=== PATIENT | female | born 1985 | race Caucasian/White ===

== ENCOUNTER → 2017-06-27 | Outpatient (CLI) | payer OTHER ==
[2017-06-27 13:48] LABS: BASO # 0.1 10^3/uL (0.0-0.2); BASO % 0.7 % (0.0-1.0); EOS # 0.1 10^3/uL (0.0-0.50); EOS % 0.9 % (0.0-3.0); HEMATOCRIT 39.5 % (36.0-47.0); HEMOGLOBIN 13.3 g/dl (12.0-15.5); IMMATURE GRANULOCYTE % 0.6 % (0-3.0); LYMPH # 1.6 10^3/uL (1.5-4.5); LYMPH % 19.8 % (24.0-44.0); MEAN CORPUSCULAR HEMOGLOBIN 29.4 pg (27.0-33.0); MEAN CORPUSCULAR HGB CONC 33.7 g/dl (32.0-36.5); MEAN CORPUSCULAR VOLUME 87.4 fl (80.0-96.0); MONO # 0.5 10^3/uL (0.0-0.8); MONO % 5.5 % (0.0-5.0); NEUTROPHILS % 72.5 % (36.0-66.0); PLATELET COUNT, AUTOMATED 300 10^3/uL (150-450); RED BLOOD COUNT 4.52 10^6/uL (4.00-5.40); RED CELL DISTRIBUTION WIDTH 12.5 % (11.5-14.5); WHITE BLOOD COUNT 8.2 10^3/uL (4.0-10.0)
[2017-06-27 15:28] LABS: CHLAMYDIA DNA AMPLIFICATION NEGATIVE (NEGATIVE); GC DNA AMPLIFICATION NEGATIVE (NEGATIVE)
[2017-06-28 12:14] LABS: RUBELLA IgG QUALITATIVE IMMUNE (IMMUNE)
[2017-06-28 12:43] LABS: HEPATITIS C VIRUS ABY INDEX < 0.0 INDEX (<0.8)
[2017-06-28 12:44] LABS: HIV 1&2 SCREEN CENTAUR NEGATIVE (NEGATIVE)
[2017-06-28 12:46] LABS: HBsAg Prenatal NEGATIVE (NEGATIVE)
== END ==
LOC: M SMT 08:58
DX: Z34.81 Encounter for supervision of other normal pregnancy, first trimester (principal); Z3A.09 9 weeks gestation of pregnancy
CPT/HCPCS: 86762

== ENCOUNTER → 2017-08-07 | Outpatient (CLI) | payer BC | LOC: M SMT 09:01 | DX: Z34.81 Encounter for supervision of other normal pregnancy, first trimester (principal); Z36.9 Encounter for antenatal screening, unspecified | CPT/HCPCS: 36415 ==

== ENCOUNTER → 2018-01-08 | Outpatient (REF) | payer BC | LOC: M LAB REF 16:54 | DX: Z34.03 Encounter for supervision of normal first pregnancy, third trimester (principal); Z3A.00 Weeks of gestation of pregnancy not specified | CPT/HCPCS: 87081; 87186 ==

== ENCOUNTER 2018-01-21 21:40 | Inpatient (IN) | payer BC ==
[2018-01-21] MEDS: LACTATED RINGER'S 1000 ML IV (22:27)
[2018-01-21 23:00] LABS: HEMATOCRIT 50.6 % (36.0-47.0); HEMOGLOBIN 17.5 g/dl (12.0-15.5); MEAN CORPUSCULAR HEMOGLOBIN 29.1 pg (27.0-33.0); MEAN CORPUSCULAR HGB CONC 34.6 g/dl (32.0-36.5); MEAN CORPUSCULAR VOLUME 84.2 fl (80.0-96.0); PLATELET COUNT, AUTOMATED 163 10^3/uL (150-450); RED BLOOD COUNT 6.01 10^6/uL (4.00-5.40); RED CELL DISTRIBUTION WIDTH 12.6 % (11.5-14.5); WHITE BLOOD COUNT 9.8 10^3/uL (4.0-10.0)
[2018-01-21] MEDS: PENICILLIN G POTASSIUM IV 5 MU in D5W MINI-BAG PLUS 100 ML IV (23:15)
[2018-01-21] MEDS ORDERED: FENTANYL 2MCG/ML ROPIVACAINE 0.2% IN 0.9% NACL 200ML IVBAG As Ordered (23:26)
[2018-01-21 23:50] LABS: TOTAL PROTEIN,RANDOM URINE 31.6 MG/DL (0.0-12.0)
[2018-01-22 00:09] LABS: ALT/SGPT 19 U/L (12-78); AST/SGOT 19 U/L (7-37); BILIRUBIN,TOTAL 0.5 MG/DL (0.2-1.0); CREATININE FOR GFR 0.85 MG/DL (0.55-1.30); GLOMERULAR FILTRATION RATE > 60.0 (>60); LDH LACTATE DEHYDROGENASE 225 U/L (84-246); URIC ACID 6.4 MG/DL (2.6-6.0)
[2018-01-22] MEDS ORDERED: REFRIGERATOR IV KEYS XX (00:20)
[2018-01-22] MEDS ORDERED: ePHEDrine SULFATE 25 MG/5 ML(5MG/ML) SYRINGE IV (00:20)
[2018-01-22] MEDS ORDERED: EPIDURAL COMMENT XX (00:20)
[2018-01-22] MEDS ORDERED: EPIDURAL/PCA KEYS XX (00:20)
[2018-01-22] MEDS ORDERED: NALOXONE INJ 0.4 MG/1 ML VIAL (J2310) IV (00:20)
[2018-01-22] MEDS ORDERED: FENTANYL/ROPIVACAINE/NACL BAG 200 ML EPIDURAL (00:20)
[2018-01-22] MEDS ORDERED: diphenhydrAMINE INJ 50MG/ML VIAL (J1200) IV (00:20)
[2018-01-22] MEDS ORDERED: ONDANSETRON 4MG/2ML VIAL (J2405) IV (00:20)
[2018-01-22] MEDS ORDERED: LACTATED RINGER'S 1000 ML IV (00:20)
[2018-01-22] MEDS: PENICILLIN G POTASSIUM IV 2.5 MU in APPROPRIATE DILUENT 1 EA IV ×2 (03:04→07:20)
[2018-01-22] MEDS: LR 1,000 ML IV (03:07)
[2018-01-22] MEDS ORDERED: OXYTOCIN 30 UNITS IN 0.9% NaCl 500ML IV BAG (J2590) As Ordered (04:43)
[2018-01-22] MEDS ORDERED: OXYTOCIN DRIP 30 UNITS in APPROPRIATE DILUENT 1 EA IV ×2 (04:45→10:05)
[2018-01-22] MEDS: OXYTOCIN DRIP 30 UNITS in APPROPRIATE DILUENT 1 EA IV (09:40)
[2018-01-22] MEDS ORDERED: ACETAMINOPHEN 500 MG TAB PO (10:15)
[2018-01-22] MEDS ORDERED: METHYLERGONOVINE MALEATE 0.2 MG TAB PO (10:15)
[2018-01-22] MEDS ORDERED: MOM 30ML SUSPENSION UDC PO (10:15)
[2018-01-22] MEDS ORDERED: ANUSOL HC CREAM 30GM TOP (10:15)
[2018-01-22] MEDS: PRENATAL VITAMINS CHEWABLE TABLET PO (10:56)
[2018-01-22] MEDS: RHOGAM 300 MCG (1500 IU) INJ (J2790) IM (11:54)
[2018-01-22] MEDS: MEASLES,MUMPS,RUBELLA VACCINE INJ (MMR-II) (90707) SC (11:54)
[2018-01-22] MEDS: DIBUCAINE 1% OINTMENT 30GM TOP (12:04)
[2018-01-22] MEDS: IBUPROFEN 800 MG TAB PO (19:22)
[2018-01-22] MEDS: DOCUSATE SODIUM 100 MG CAP PO (20:32)
[2018-01-23] MEDS: IBUPROFEN 800 MG TAB PO (08:16)
[2018-01-23] MEDS: PRENATAL VITAMINS CHEWABLE TABLET PO (08:16)
[2018-01-24] MEDS: IBUPROFEN 800 MG TAB PO (02:05)
[2018-01-24] MEDS: PRENATAL VITAMINS CHEWABLE TABLET PO (08:33)
== END 2018-01-24 11:25 | disposition home or self-care (01) | DRG 560 ==
LOC: M LDO 21:40 → M OBS 01-22 11:46 → M LDI 22:24
PROC: 10E0XZZ Delivery of Products of Conception, External Approach (ICD-10-PCS; principal; 2018-01-22)
PROC: 0HQ9XZZ Repair Perineum Skin, External Approach (ICD-10-PCS; 2018-01-22)
DX: O70.0 First degree perineal laceration during delivery (principal); Z37.0 Single live birth; O99.820 Streptococcus B carrier state complicating pregnancy; Z3A.38 38 weeks gestation of pregnancy

== ENCOUNTER → 2019-01-21 | Outpatient (REF) | payer BC ==
[~2019-01-21] MED LIST: COLA100C5 PO; IBUP-1114 PO; MAPA500T2 PO; PRENTAB9 PO
== END ==
LOC: M LAB REF 12:50
PROVIDERS: ATTEND Internal Medicine
DX: R20.2 Paresthesia of skin (principal)

== ENCOUNTER → 2020-03-29 | Outpatient (CLI) | payer BC | LOC: M PLALAB 14:10 | PROVIDERS: ATTEND Advanced Practice Midwife | DX: Z13.79 Encounter for other screening for genetic and chromosomal anomalies (principal) ==

== ENCOUNTER → 2020-03-29 | Outpatient (REF) | payer BC | LOC: M SFHCWAGY 18:48 | PROVIDERS: ATTEND Advanced Practice Midwife | DX: Z12.4 Encounter for screening for malignant neoplasm of cervix (principal) ==

== ENCOUNTER → 2021-09-21 | Outpatient (CLI) | payer BC | LOC: M SLEEP HO 13:02 | PROVIDERS: ATTEND Internal Medicine Cardiovascular Disease | DX: R06.83 Snoring (principal) ==

== ENCOUNTER → 2022-04-18 | Outpatient (REF) | payer BC | LOC: M SFHCWAGY 13:07 | PROVIDERS: ATTEND Nurse Practitioner Family | DX: Z12.4 Encounter for screening for malignant neoplasm of cervix (principal) | CPT/HCPCS: 87624; G0123 ==

== ENCOUNTER → 2022-07-25 | Outpatient (CLI) | payer BC | LOC: M WUC 10:47 | PROVIDERS: ATTEND Nurse Practitioner Family | DX: M54.2 Cervicalgia (principal) ==

== ENCOUNTER 2023-03-28 09:24 | Day surgery (SDC) | payer BC ==
[~2023-03-28] VITALS: Ht 160 cm; Wt 90.9 kg
[2023-03-28] MEDS ORDERED: OMEP-173 PO (09:35)
[2023-03-28] MEDS ORDERED: ACETAMINOPHEN *IV* 1,000 MG in IV 1 EA IV ONE (10:20)
[2023-03-28 10:27] LABS: BASO # 0.1 10^3/uL (0.0-0.2); BASO % 0.5 % (0.0-1.0); EOS # 0.1 10^3/uL (0.0-0.5); EOS % 0.6 % (0.0-3.0); HEMOGLOBIN 12.7 g/dl (12.0-15.5); LYMPH # 1.2 10^3/uL (1.5-5.0); LYMPH % 11.5 % (24.0-44.0); MEAN CORPUSCULAR HEMOGLOBIN 29.3 pg (27.0-33.0); MEAN CORPUSCULAR HGB CONC 33.4 g/dl (32.0-36.5); MEAN CORPUSCULAR VOLUME 87.6 fl (80.0-96.0); MONO # 0.3 10^3/uL (0.0-0.8); MONO % 3.1 % (2.0-8.0); NEUTROPHILS # 8.9 10^3/uL (1.5-8.5); NEUTROPHILS % 83.9 % (36.0-66.0); PLATELET COUNT, AUTOMATED 252 10^3/uL (150-450); RED BLOOD COUNT 4.34 10^6/uL (4.00-5.40); WHITE BLOOD COUNT 10.5 10^3/uL (4.0-10.0)
[2023-03-28] MEDS ORDERED: MED REC IN PROGRESS XX SCH (12:05)
[2023-03-28] MEDS: ONDANSETRON 4MG 2ML VIAL IV ONE ×2 (12:18→12:43)
[2023-03-28] MEDS: MORPHINE 4 MG/ML 1ML VIAL IV ONE ×2 (12:19→12:43)
[2023-03-28 12:25] LABS: RSV AMPLIFICATION NEGATIVE (NEGATIVE)
[2023-03-28] MEDS ORDERED: NS 1,000 ML IV ONE (12:25)
[2023-03-28] MEDS ORDERED: propofoL 200 MG/20 ML VIAL As Ordered ONE (13:00)
[2023-03-28] MEDS ORDERED: MIDAZOLAM INJ 2MG/2ML VIAL As Ordered ONE (13:00)
[2023-03-28] MEDS ORDERED: fentaNYL 100 MCG/2 ML INJECTION As Ordered ONE (13:00)
[2023-03-28] MEDS ORDERED: LIDOCAINE 2% 100MG/5ML SDV (FOR ANES.) As Ordered ONE (13:00)
[2023-03-28] MEDS ORDERED: ONDANSETRON 4MG 2ML VIAL As Ordered ONE (13:01)
[2023-03-28] MEDS ORDERED: SUGAMMADEX SODIUM 500 MG/5 ML VIAL (BRIDION) As Ordered ONE (13:03)
[2023-03-28] MEDS ORDERED: KETOROLAC 60MG 2ML VIAL As Ordered ONE (13:55)
[2023-03-28 16:07] VITALS: BP 112/61; TEMP 97.8; O2SAT 100
== END 2023-03-28 16:21 | disposition home or self-care (01) ==
LOC: M ED 09:24 → M SDC 09:25
PROVIDERS: ATTEND Specialist
DX: O02.1 Missed abortion (principal); Z88.8 Allergy status to other drugs, medicaments and biological substances
CPT/HCPCS: 59820; 76801; 76817; 84702; 85025; 86850; 86900; 86901; 86920; 87631; 88305; 93041; 93976; 94760; 96374; 99285; J0131; J1100; J1885; J2250; J2405; J3010

== ENCOUNTER → 2023-06-03 | Outpatient (CLI) | payer BC ==
[~2023-06-03] MED LIST changes: +OMEP-173 PO
== END ==
LOC: M WHC 09:39
PROVIDERS: ATTEND Specialist
DX: Z12.31 Encounter for screening mammogram for malignant neoplasm of breast (principal)

== ENCOUNTER → 2023-08-01 | Outpatient (CLI) | payer BC | LOC: M WHC 13:57 | PROVIDERS: ATTEND Internal Medicine | DX: R10.2 Pelvic and perineal pain (principal) ==

== ENCOUNTER → 2024-07-22 | Outpatient (CLI) | payer BC | LOC: M WHC 10:17 | PROVIDERS: ATTEND Internal Medicine | DX: Z12.31 Encounter for screening mammogram for malignant neoplasm of breast (principal) ==

== ENCOUNTER → 2025-01-20 | Outpatient (CLI) | payer BC ==
[2025-01-20 13:32] LABS: PLATELET COUNT, AUTOMATED 266 10^3/uL (150-450)
[2025-01-20 14:13] LABS: HIV 1&2 SCREEN NEGATIVE (NEGATIVE)
[2025-01-20 14:22] LABS: HEPATITIS C VIRUS ABY INDEX < 0.02 INDEX (<0.8)
[2025-01-20 15:48] LABS: Trichomonas vaginalis (AMP) NOT DETECTED (NEGATIVE)
[2025-01-20 16:11] LABS: GC DNA AMPLIFICATION NEGATIVE (NEGATIVE)
== END ==
LOC: M PLALAB 10:27
PROVIDERS: ATTEND Advanced Practice Midwife
DX: Z34.91 Encounter for supervision of normal pregnancy, unspecified, first trimester (principal)

== ENCOUNTER 2025-03-07 22:48 | Emergency (ER) | payer BC ==
[~2025-03-07] VITALS: Ht 160 cm; Wt 96.0 kg
[2025-03-08 04:11] LABS: BASO # 0.0 10^3/uL (0.0-0.2); BASO % 0.4 % (0.0-1.0); EOS # 0.0 10^3/uL (0.0-0.5); EOS % 0.4 % (0.0-3.0); LYMPH # 1.9 10^3/uL (1.5-5.0); LYMPH % 17.7 % (24.0-44.0); MONO # 0.4 10^3/uL (0.0-0.8); MONO % 3.3 % (2.0-8.0); NEUTROPHILS # 8.5 10^3/uL (1.5-8.5); NEUTROPHILS % 77.7 % (36.0-66.0); PLATELET COUNT, AUTOMATED 289 10^3/uL (150-450)
[2025-03-08 04:33] LABS: ALT/SGPT 22 U/L (7.0-40); AST/SGOT 24 U/L (<34); CALCIUM LEVEL 9.1 MG/DL (8.5-10.1); CARBON DIOXIDE LEVEL 20 MMOL/L (20-31); CHLORIDE LEVEL 107 MMOL/L (98-107); CREATININE FOR GFR 0.67 MG/DL (0.55-1.30); GLOMERULAR FILTRATION RATE > 90.0 (>60); MAGNESIUM LEVEL 2.0 MG/DL (1.8-2.4); POTASSIUM SERUM 4.0 MMOL/L (3.5-5.1); SODIUM LEVEL 138 MMOL/L (136-145)
[2025-03-08] MEDS: NS (Normal Saline) 0.9% 1,000 ML IV ONE (05:24)
[2025-03-08 05:49] LABS: KETONE, URINE AUTO RFX TRACE mg/dL (NEGATIVE); LEUKOCYTE ESTERASE UR AUTO RFX NEGATIVE (NEGATIVE); MUCUS, URINE RFX SMALL (NEGATIVE); NITRITE, URINE AUTO RFX NEGATIVE (NEGATIVE); RBC, URINE AUTO RFX 0 /HPF (0-3); SQUAM EPITHELIAL CELL UR AURFX 1 /HPF (0-6); WBC, URINE AUTO RFX 2 /HPF (0-3)
[2025-03-08 07:12] VITALS: BP 114/70; TEMP 97.7; O2SAT 100
== END 2025-03-08 07:15 | disposition home or self-care (01) ==
LOC: M ED 22:48
DX: Z34.00 Encounter for supervision of normal first pregnancy, unspecified trimester (principal); Z3A.19 19 weeks gestation of pregnancy; K21.9 Gastro-esophageal reflux disease without esophagitis; Z88.2 Allergy status to sulfonamides; Z79.899 Other long term (current) drug therapy